=== PATIENT | female | born 1960 | race Caucasian/White ===

== ENCOUNTER → 2024-04-15 09:44 | Outpatient (BNVA) | payer MEDICARE, SELFPAY | PROVIDERS: Visit Provider Specialist | DX: G62.9 Polyneuropathy, unspecified (principal); F07.81 Postconcussional syndrome; G44.309 Post-traumatic headache, unspecified, not intractable; H93.13 Tinnitus, bilateral | CPT/HCPCS: 99205 ==

== ENCOUNTER → 2024-06-16 08:41 | Outpatient (BNVA) | payer MEDICARE, SELFPAY | PROVIDERS: Visit Provider Specialist | DX: G62.9 Polyneuropathy, unspecified (principal); F07.81 Postconcussional syndrome; G44.309 Post-traumatic headache, unspecified, not intractable; H93.19 Tinnitus, unspecified ear; Z91.014 Allergy to mammalian meats | CPT/HCPCS: 99214 ==

== ENCOUNTER → 2024-12-16 13:46 | Outpatient (BNVA) | payer MEDICARE, SELFPAY | PROVIDERS: Visit Provider Specialist | DX: G62.9 Polyneuropathy, unspecified (principal); F07.81 Postconcussional syndrome; G44.309 Post-traumatic headache, unspecified, not intractable; H93.19 Tinnitus, unspecified ear; Z91.014 Allergy to mammalian meats | CPT/HCPCS: 99214 ==